=== PATIENT | female | born 1995 | race Caucasian/White ===

== ENCOUNTER 2016-09-13 23:32 | Emergency (ER) | payer MEDICARE, OTHER ==
[2016-09-14] MEDS ORDERED: ACETAMINOPHEN 325 MG TABLET PO ONE (01:03)
[2016-09-14] MEDS ORDERED: LORazepam 2 MG/ML DISP.SYRIN IM ONE (01:03)
[2016-09-14] MEDS ORDERED: LORazepam 2 MG/ML DISP.SYRIN ONE (01:19)
[2016-09-14] MEDS ORDERED: ACETAMINOPHEN 160 MG/5 ML BTL PO ONE (01:21)
--- OUTSIDE RECORDS SUMMARY | 2016-09-14 01:40 | XMS REPORT | Continuity of Care Document ---
:1995 Author Organization [facility] ([facility]) Address [address] [place] [address] Phone [phone] Care Team Providers Name Role Phone Pete Sinha Primary Care Provider [phone] Source Comments This disclosure is being made pursuant to the Care Everywhere program, applicable federal and state laws, and may not contain all informaitonavailable regarding this patient.[facility] ([facility]) Active Allergies and Adverse Reactions Allergen Noted Date Severity Reactions Comments Acyclovir 04/26/2013 Nausea & Patient's mother Vomiting,Rash unable to remember to confirm Amoxicillin 01/25/2014 Diarrhea,OTHER Equivocal 0/1 on RAST scoring system from skin testing 11/18/13 Diphenhydramine (Bulk) Agitation Patient becomes mean, irritable and combative Latex 04/26/2013 Rash Peanut Anaphylactic Shock Promethazine Agitation Patient becomes mean, irritable and combative Ragweed 04/26/2013 OTHER Tree Nut - Food Allergy Anaphylactic Shock Only Vancomycin 04/26/2013 OTHER Renal dysfunction after a past course Current Medications Prescription Sig. Disp. Refills Start End Status Date Date mupirocin 2 % apply topically 2 Active ointment times daily. folic acid 1 mg Take 1 mg by mouth Active tablet daily. Takes Friday to Friday LORazepam 2 mg Take 2 mg by mouth Active tablet 2 times daily. lurasidone (LATUDA) Take 20 mg by Active 20 mg tablet mouth every morning with breakfast. Take with food. fluconazole 100 mg Take 200 mg by Active tablet mouth as needed. loperamide 2 mg Take 2 caps (4 mg) 150 capsule 8 Active capsule upon awakening in 6 the AM, then 1 cap (2 mg) with each bowel movement. Maximum=8 caps per day.. dexamethasone 4 mg Take 4 tablets (16 40 tablet 0 Active tablet mg total) by mouth 6 daily. montelukast 10 mg Take 1 tablet (10 30 tablet Active tablet mg total) by mouth 6 017 every evening. EPINEPHrine (EPIPEN Inject 0.3 mL (0.3 2 Syringe Active 2-ROSA MARIA) 0.3 mg/0.3 mg total) 6 mL injection subcutaneously syringe once as needed. albuterol 5 mg/mL Use 0.5 mL (2.5 mg 20 mL Active nebulizer solution total) by 6 inhalation every 4 hours as needed. Call if not helping for 4 hrs or needing 4+ times/day pantoprazole 40 mg Take 1 tablet (40 30 tablet Active EC tablet mg total) by mouth 6 daily. ranitidine 300 mg Take 1 capsule 30 capsule 8 Active capsule (300 mg total) by 7 mouth at bedtime. levothyroxine 150 Take 1 tablet (150 30 tablet Active mcg tablet mcg total) by 7 mouth daily. fluticasone Use 2 Puffs by 12 g Active (FLOVENT HFA 110) inhalation every 7 inhaler 12 hours. nystatin 100,000 Take 5 mL by mouth 600 mL Active unit/mL suspension 4 times daily. 7 cholecalciferol Take 8,000 Units Active (VITAMIN D3) 2,000 by mouth daily. unit capsule CLOTRIMAZOLE EX Apply topically as Active needed. methotrexate 25 Inject 1 mL (25 mg 10 mL Active mg/mL injection total) 7 subcutaneously every week. SUPPLY insulin Inject 100 Syringe Active syringe w/ needle subcutaneously 2 7 U-100 1 mL 30 g x times daily. 09/24" cholecalciferol Take 3,000 Units Discontinued (VITAMIN D3) 1,000 by mouth daily . 017 unit chewable tablet SUPPLY insulin inject 100 Syringe Discontinued syringe w/ needle subcutaneously 2 4 017 U-100 1 mL 30 g x times daily. 09/24" Indications: crohn's disease metroNIDAZOLE 500 Take 1 tablet (500 60 tablet 2 Discontinued mg tablet mg total) by mouth 5 017 2 times daily nystatin 100,000 Take 5 mL by mouth 600 mL 11 Discontinued unit/mL suspension 4 times daily. 6 017 loratadine 10 mg Take 1 tablet (10 30 tablet Discontinued tablet mg total) by mouth 6 017 daily. methotrexate 25 Inject 1 mL (25 mg 10 mL Discontinued mg/mL injection total) 6 017 subcutaneously every week. Active Problems Problem Noted Date Allergic rhinitis due to pollen 11/14/2015 Ongoing use of possibly toxic medication 04/13/2014 High body mass index 04/11/2014 Forunculosis 01/25/2014 Overview: Treated for presumed MRSA with clindamycin 300 mg PO TID planned for total of 7 days. Asthma, intermittent 01/24/2014 Overview: Currently on PRN albuterol nebulized and inhaled treatments in addition to dexamethasone therapy. 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) 01/24/2014 Vitamin D deficiency 05/06/2013 Obstructive sleep apnea, on CPAP at night 08/16/2010 Hypothyroidism 07/06/2010 Crohn's disease of esophagus 07/06/2010 Pervasv Dev Disorder 02/20/2004 Moderate intellectual disabilities 12/31/2002 Hearing Loss 12/31/2002 Hypersomnia with Sleep Apnea 12/29/2002 Down's syndrome 01/08/2001 Resolved Problems Problem Noted Date Resolved Date Pustular rash 04/13/2014 11/14/2015 Hypoxia 01/27/2014 11/14/2015 Respiratory distress 01/24/2014 11/14/2015 Viral respiratory illness 01/24/2014 11/14/2015 Bronchitis 01/23/2014 11/14/2015 Overview: Currently on levofloxacin, empiric coverage for atypical microorganisms Allergic to beta-lactams Chronic otitis media 01/05/2014 11/14/2015 Fever 08/27/2013 08/28/2013 Thrombosis of arm 09/14/2010 01/24/2014 Anticoagulated 09/14/2010 01/24/2014 Difficulty walking 08/15/2010 01/24/2014 Bacterial pneumonia, recurrent 08/04/2010 01/24/2014 Acute respiratory distress syndrome (ARDS), resolved 08/04/2010 01/24/2014 Empyema treeated with VATS, resolved 08/04/2010 01/24/2014 Prolonged fever 07/24/2010 08/04/2010 Fluid overload 07/14/2010 08/04/2010 Pyoderma gangrenosum 07/12/2010 01/24/2014 Thrombopenia 07/11/2010 07/14/2010 Acute renal failure 07/09/2010 01/24/2014 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 01/24/2014 Overview: Likely B12 deficiency given Crohn's or folate deficiency Lymphopenia 07/06/2010 07/17/2010 Vitamin D deficiency 02/15/2010 08/04/2010 Overview: 02/15/10 was13, 07/09/10 was 20--> 8,000IU since 07/10/10 Weight gain 09/21/2009 01/24/2014 Dysphagia 04/10/2005 01/24/2014 Overview: problem hide stretcher hand replacement for go-live --MAL Lack of coordination 02/15/2005 09/21/2009 Educational circumstance 02/20/2004 09/21/2009 Other specified family circumstances 04/11/2003 09/21/2009 Problems with communication (including speech) 12/31/2002 09/16/2010 Unspecified intellectual disabilities 01/08/2001 09/21/2009 Esophageal reflux 01/08/2001 01/24/2014 Most Recent Encounters Date Type Specialty Providers Description 09/13/2016 Nurse Triage Patient Services Nikki Granda, Chief Comp: RN Immunizations/Injecti ons 09/13/2016 Orders/Notes Pediatric Allergy Vandana Corona ARNP 09/13/2016 Telephone Pediatrics - Specialty Jamie, Chief Comp: Adelina Hopper Medication Question 09/11/2016 Office Visit Pathology Job Michael, Chief Comp: Patient MD Reported Reason For Lab Services, Psc Visit 09/11/2016 Office Visit Pediatric Isi Vazquez Dx: Crohn's disease Gastroenterology MD Veronica of both small and Job Michael large intestine without complication [K50.80] (Primary Dx) 09/11/2016 Office Visit Pediatric Endocrinology Isi Vazquez Dx: Hypothyroidism MD Veronica (acquired) (Primary Flory Sanchez Dx) MD Carlos Hopper Vanessa A, MD Osterhaus, Julie, PNP 09/02/2016 Refill Pediatric Byron Sullivan RN Dx: Crohn's colitis, Gastroenterology without complications (Primary Dx) 08/06/2016 Telephone Pediatric Allergy Vandana Corona, Chief Comp: Forms and 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 Requests 08/01/2016 Telephone Pediatric Allergy Shagufta Baird Chief Comp: Durable E, RN Medical Equipment 08/01/2016 Telephone Pediatrics - Specialty Karma Contreras Chief Comp: Other 07/29/2016 Telephone Pediatric Allergy Shagufta Baird Chief Comp: E, RN Appointment Info 07/24/2016 Telephone Pediatrics - Specialty Celina Engel Chief Comp: Other 07/15/2016 Refill Pediatrics - Specialty Karma Contreras Dx: Asthma, intermittent, uncomplicated (Primary Dx) 07/05/2016 Telephone Pediatrics - Specialty Karma Contreras Chief Comp: Other 07/03/2016 Office Visit Pediatric Isi Vazquez Chief Comp: Patient Gastroenterology MD Veronica Reported Reason For Job Michael, Drew ROUSE 07/03/2016 Office Visit Pediatric Endocrinology Isi Vazquez Chief Comp : Patient F, MD Reported Reason For Flory Sanchez Visit MD Paul Hopper Julie, PNP 06/28/2016 Telephone Pediatric Allergy Shagufta Baird Chief Comp: Durable E, RN Medical Equipment 06/18/2016 Orders/Notes Pediatric Allergy Mookie Craig Dx: Obstructive sleep DMD apnea, on CPAP at night (Primary Dx) 06/18/2016 Telephone Pediatrics - Specialty Jamie, Chief Comp: Ashwini Hopper Medications/orders Immunizations Name Dates Previously Given Next Due DTP/Hib 1995 Hepatitis B, unspecified 1995 Influenza 02/08/2009,02/17/2008,03/03/2007,12/2001,03/30/2001,03/19/1996,04/02/19 95 Influenza, PF 01/20/2015,02/03/2013,02/13/2012,02/09 Influenza, quadrivalent PF 02/12/2016 Influenza, unspecified 02/24/2006,05/01/1995,04/02/1995 Pneumococcal Conjugate, PCV13 (Prevnar 09/11/2016 13) Pneumococcal Polysaccharide, PPSV23 11/02/2012 (Pneumovax 23) Polio, unspecified 1995 Social History Tobacco Use Types Packs/Day Years Used Date Never Smoker Smokeless Tobacco: Never Used Tobacco Cessation:Counseling Given: Yes Comments: Alcohol Use Drinks/Week oz/Week Comments No Last Filed Vital Signs Vital Sign Reading Time Taken Blood Pressure 128/65 09/11/2016 2:25 PM CDT Pulse 86 09/11/2016 2:25 PM CDT Temperature 37.2 C (99 F) 09/11/2016 2:25 PM CDT Respiratory Rate 18 11/14/2015 11:12 AM CDT Height 1.407 m (4' 7.39") 09/11/2016 2:25 PM CDT Weight 75.7 kg (166 lb 14.2 oz) 09/11/2016 2:25 PM CDT Body Mass Index 38.24 09/11/2016 2:25 PM CDT Oxygen Saturation 99% 11/14/2015 11:12 AM CDT Plan of Care Date Type Specialty Providers Description 09/17/2016 Appointment Pediatric Allergy Mookie Craig Dx: Encounter for MD Bhumi pulmonary function [address] [facility] testing (Primary [place], [place] Dx) [address] [phone] (Fax) 01/07/2017 Appointment Med GI/Hepatology Patrice Reid MD Subj: Appointment [address] [facility] [place] [address] [phone] (Fax) 03/19/2017 Appointment Pediatric Endocrinology Robert Taylor MD [address] [place] [address] [phone] (Fax) Subj: Appointment Jonelle Miller PNP [address] [place] [address] [phone] (Fax) Scheduled 03/19/2017 Appointment Pediatric Robert Taylor MD [address] [place] [address] [phone] (Fax) Subj: Appointment Gastroenterology Job Michael MD [address] [place] [address] [phone] (Fax) Scheduled 03/19/2017 Appointment Pediatric Allergy Robert Taylor MD [address] [place] [address] [phone] (Fax) Subj: Appointment Mookie Craig MD [address] [place] [address] [phone] (Fax) Scheduled Health Maintenance Due Date Last Done Comments Hepatitis B Vaccine (2 of 3 1994 1994 - Primary Series) HPV Vaccine (1 of 3 - Female 2005 3 Dose Series) Tdap Vaccine 2005 Cervical Cancer Screening 2012 Lipid Disorder Screening 2012 MMR Vaccine 2012 Td Vaccine 2012 1994 Influenza Vaccine: Seasonal Addressed 02/12/2016, Overridden with the 06/28/2015 intention of not (Previously completing the topic, completed), Additional history exists 01/20/2015 Pneumococcal Vaccine Completed 09/11/2016, 11/02/2012 Results from Last 3 Months DIFFERENTIAL (09/11/2016 2:56 PM) Component Value Range % Neutrophils-Auto Diff 77.1 % Neutrophils-Auto Diff 8740(H) 8077-7367 /MM3 % Lymphocytes-Auto Diff 16.1 % Lymphocytes-Auto Diff 3740 910-6424 /MM3 % Monocytes-Auto Diff 4.5 % Monocytes-Auto Diff 510 130-860 /MM3 % Eosinophils-Auto Diff 1.3 % Eosinophils-Auto Diff 150 40-390 /MM3 % Basophils 0.5 % Basophils-Auto Diff 60 10-136 /MM3 % Immature Granulocytes-Auto Diff 0.5 % Immature Granulocytes-Auto Diff 60 /MM3 Specimen Whole Blood CBC (COMPLETE BLOOD COUNT) (09/11/2016 2:56 PM) Component Value Range WBC Count 11.4(H) 3.7-10.5 K/MM3 RBC Count 4.20 4.00-5.20 M/MM3 Hemoglobin 14.1 11.9-15.5 g/dL Hematocrit 40 35-47 % MCV (Mean Corpuscular Volume) 96 82-99 FL MCH (Mean Corpuscular Hemoglobin) 34 25-35 PG MCHC (Mean Corpuscular Hemoglobin Concentration) 35 32-36 % Platelet Count 240 150-400 K/MM3 MPV (Mean Platelet Volume) 9.8 9.4-12.3 FL RBC Dist Width-STD 51.0(H) 36.4-46.3 FL RBC Distrib Width 14.6(H) 9.0-14.5 % Nucleated RBC 0 /100 WBC Specimen Whole Blood IRON PANEL (IRON, TRANSFERRIN, TIBC AND % SATURATION) (09/11/2016 2:56 PM) Component Value Range Iron, Blood 36(L) 37-145 g/dL Transferrin 167(L) 200-360 mg/dL Iron % Saturation 15Comment: 15-50 % Iron % saturation is a calculated parameter derived from the iron and transferrin plasma concentrations. Iron % saturation is not reliable when there are high ferritin concentrations greater than 1,200 ng/mL. TIBC (Total Iron Binding Capacity) 239(L)Comment: 250-425 g/dL TIBC is a calculated parameter derived from the transferrin plasma concentration. Specimen Blood FERRITIN (09/11/2016 2:56 PM) Component Value Range Ferritin 262.4(H) 13.0-150.0 ng/mL Specimen Blood BILIRUBIN, DIRECT (09/11/2016 2:56 PM) Component Value Range Bilirubin, Direct <0.2 0.0-0.2 mg/dL Specimen Blood LIVER PANEL (09/11/2016 2:56 PM) Component Value Range Bilirubin Total 0.2 <=1.2 mg/dL AST 18Comment: 0-32 U/L Adult reference ranges updated on 04/06/13 at 830am ALT 36(H)Comment: 0-33 U/L The upper limit of normal for alanine aminotransferase (ALT) reference ranges for adults is controversial with some authorities recommending limit as low as 30 U/L for males and 19 U/L for females. Th ere is increased incidence of subclinical liver disease (e.g., early steatohepatitis) in patients with ALT values in the range of 31-41 U/L for males and 20-33 U/L for females. ALT values should alway s be interpreted in conjunction with clinical history, physical examination findings, and, if applicable, data from other diagnostic tests. ALP 87 35-104 U/L GGT 35 5-36 U/L Albumin 3.7 3.4-4.8 g/dL Total Protein 6.3 6.0-8.0 g/dL Specimen Blood ERYTHROCYTE SEDIMENTATION RATE (09/11/2016 2:56 PM) Component Value Range ESR (Erythrocyte Sedimentation Rate) 10 0-20 mm/Hr Specimen Whole Blood C-REACTIVE PROTEIN (09/11/2016 2:56 PM) Component Value Range CRP (C-Reactive Protein) 1.4(H) <=0.5 mg/dL Specimen Blood CBC WITH DIFFERENTIAL (09/11/2016 2:56 PM) Specimen Whole Blood Narrative The following orders were created for panel order CBC WITH DIFFERENTIAL. Procedure Abnormality Status --------- ------ CBC (COMPLETE BLOOD COUNT)[[id number]] AbnormalFinal result DIFFERENTIAL[[id number]] AbnormalFinal result Please view results for these tests on the individual orders. TESTOSTERONE-TOTAL (09/11/2016 2:56 PM) Component Value Range Total Testosterone 32 8-48 ng/dL Specimen Blood Narrative New reference range instituted 07/12/2010. Assay is not recommended for girls less than 8 years old due to the low concentrations of testosterone in this population. Adult Males: 19-49 years old -- 249-836 ng/dL 50 years and older -- 193-740 ng/dL Adult females: 19-49 years old -- 8-48 ng/dL 50 years and older -- 2-41 ng/dL Boys <1 month -- 75-400 ng/dL 1-5 months -- 14-363 ng/dL 6-24 months -- Less than 37 ng/dL 2-5 years -- Less than 19 ng/dL 6-9 years -- Less than 13 ng/dL 10-11 years -- 3-237 ng/dL 12-13 years -- 29-432 ng/dL 14-15 years -- 40-778 ng/dL 16-18 years -- 238-1048 ng/dL Ricardo stage 1 -- Less than 15 ng/dL Ricardo stage 2 -- 3-432 ng/dL Ricardo stage 3 -- 65-778 ng/dL Ricardo stage 4 -- 180-763 ng/dL Ricardo stage 5 -- 188-882 ng/dL Girls Up to 30 days -- 20-64 ng/dL 1-5 months -- Less than 20 ng/dL 6-24 months -- Less than 9 ng/dL 2-3 years -- Less than 20 ng/dL 4-5 years -- Less than 30 ng/dL 6-7 years -- Less than 13 ng/dL 8-9 years -- 1-8 ng/dL 10-11 years -- 3-32 ng/dL 12-13 years -- 3-50 ng/dL 14-15 years -- 6-52 ng/dL 16-18 years -- 9-58 ng/dL Ricardo stage I -- Less than 17 ng/dL Ricardo stage II -- Less than 40 ng/dL Ricardo stage III -- 5-63 ng/dL Ricardo stage IV-V -- 6-58 ng/dL ESTRADIOL (09/11/2016 2:56 PM) Component Value Range Estradiol 24Comment: pg/mL Reference Ranges: Males: 11-43 pg/mL Females: Follicular Phase 12 - 233 pg/mL Ovulation Phase 41 - 398 pg/mL Luteal Phase 22 - 341 pg/mL Postmenopausal <5 - 138 pg/mL : 1st Trimester 154 3,243 pg/mL 2nd Trimester 1,561 21,280 pg/mL 3rd Trimester 8,525 > 30,000 pg/mL Boys (1-10 yrs) <5 - 20 pg/mL Girls (1-10 yrs) 6 - 27 pg/mL Assay methodology changed to [employer] Estradiol III assay on August 29, 2014. Adult reference ranges updated as part of change in methodology. Adult male reference range further updated on 07/23/2016. Specimen Blood VITAMIN D, 25-HYDROXY (09/11/2016 2:56 PM) Component Value Range Vitamin D, 25-OH 36Comment: 20-80 ng/mL This assay accurately quantifies the sum of 25-hydroxyvitamin D3 and 25- hydroxyvitamin D2. Endocrine Society, [place] of Medicine (IOM), and World Health Organization (WHO) guidelines designate 25-h ydroxyvitamin D plasma concentrations below 20 ng/mL as deficient, based on increased frequency of adverse outcomes (e.g., osteoporotic fractures). 25-Hydroxyvitamin D reference ranges are a controversial topic, with some authorities suggesting optimal concentrations should be 30 ng/mL or higher based on correlations of 25-hydroxyvitamin D plasma concentrations with physiological parameters such as parathyroid hormone or calcium concentrations. However, optimal 25-hydroxyvitamin D concentrations greater than 20 ng/mL may be considered for specific disease conditions. Vitamin D toxicity is uncommon but may be seen at 25-hydroxyvitamin D concentrations greater than 150 ng/mL. Specimen Blood THYROXINE - FREE (09/11/2016 2:56 PM) Component Value Range Free T4 (Thyroxine) 1.62 0.80-1.80 ng/dL Specimen Blood THYROID STIMULATING HORMONE (09/11/2016 2:56 PM) Component Value Range TSH 1.57 0.27-4.20 IU/mL Specimen Blood LH,LUTEINIZING HORMONE (09/11/2016 2:56 PM) Component Value Range LH (Luteinizing Hormone) 10.4Comment: mIU/mL Reference ranges: FEMALES: Prepubertal:<0.5 mIU/mL Ricardo II: 0.1 - 4.1 mIU/mL Ricardo III:0.2 - 9.2 mIU/mL Ricardo IV: 0.7 - 8.6 mIU/mL Ricardo V:0.5 - 7.3 mIU/mL Normally Menstruating Follicular phase 2.4 - 12.6 mIU/mL Ovulation phase 14.0 - 95.6 mIU/mL Luteal phase 1.0 - 11.4 mIU/mL Postmenopausal 7.7 - 58.5 mIU/mL MALES: Prepubertal:<0.5 mIU/mL Ricardo II: 0.2 - 2.8 mIU/mL Ricardo III:1.2 - 3.9 mIU/mL Ricardo IV: 0.9 - 4.4 mIU/mL Adults:1.7 - 8.6 mIU/mL Heterophile antibodies present in the serum of some patients may cause a false positive result in this assay.Before making the diagnosis of malignancy based on an elevated serum HCG, confirm witha urine HCG. Specimen Blood FSH,FOLLICLE STIMULATING HORMONE (09/11/2016 2:56 PM) Component Value Range FSH (Follicle Stimulating Hormone) 10.0 mIU/mL Specimen Blood Narrative Reference ranges: FEMALES: 1-3 Yrs: 1.2 - 5.7 mIU/mL 4-8 Yrs: 0.8 - 3.0 Ricardo I:0.5 - 5.1 Ricardo II: 2.4 - 8.7 Ricardo III:3.8 - 8.1 Ricardo IV: 1.1 - 9.6 Ricardo V:2.0 - 7.6 Follicular phase: 3.5 -12.5 mIU/mL Ovulation phase:4.7 -21.5 Luteal phase: 1.7 - 7.7 Postmenopausal:25.8 - 134.8 MALES: 1-3 Yrs: 0.2-1.5 mIU/mL 4-8 Yrs: 0.5-1.6 Ricardo I:0.7-3.1 Ricardo II: 1.1-6.9 Ricardo III:1.8-6.2 Ricardo IV: 1.8-4.8 Ricardo V:1.4-6.8 Adult: 1.5- 12.4 GLUCOSE (09/11/2016 2:56 PM) Component Value Range Glucose 109(H)Comment: 65-99 mg/dL The Expert Committee on the Diagnosis and Classification of Diabetes has defined impaired fasting glucose as greater than or equal to 100 mg/dL but less than 126 mg/dL.(Diabetes Care 28 (Suppl 1)S41,2005) Specimen Blood
--- NOTE | 2016-09-14 01:49 | ERNOTE ---
Upper Extremity HPI - Narrative Date of Service: 09/14/16 - General Source: patient, family Exam Limitations: no limitations - Immun/Allergies/Home Medications Allergies/Adverse Reactions: Allergies Allergy/AdvReac Type Severity Reaction Status Date / Time acyclovir Allergy Intermediate RASH, N/V Verified 01/20/14 13:47 amoxicillin [Amoxicillin] Allergy Unknown Verified 01/20/14 13:47 diphenoxylate [Diphenoxylate] Allergy Unknown Verified 01/20/14 13:47 adhesive Allergy Verified 01/20/14 13:47 cephalexin monohydrate Allergy Verified 01/20/14 13:47 [From Keflex] amoxicillin trihydrate AdvReac Mild Diarrhea Verified 01/20/14 13:47 [From Augmentin] diphenhydramine HCl AdvReac Mild MAKES HERE Verified 01/20/14 13:47 [From Benadryl] MEAN doxycycline AdvReac Mild SEVERE Verified 01/20/14 13:47 HEADACHE latex AdvReac Mild RASH Verified 01/20/14 13:47 levofloxacin [From Levaquin] AdvReac Mild UNABLE TO Verified 01/21/14 14:39 WALK potassium clavulanate AdvReac Mild Diarrhea Verified 01/20/14 13:47 [From Augmentin] promethazine AdvReac Mild MAKES HER Verified 01/20/14 13:47 VERY MEAN vancomycin AdvReac Mild BAD FOR Verified 01/20/14 13:47 KIDNEYS cefepime HCl [From Maxipime] AdvReac Verified 01/23/14 14:37 Home Medications: HOME MEDICATIONS Beclomethasone Dipropionate [Qvar] 2 inh IH BID 05/25/13 [Last Taken 01/20/14] EPINEPHrine [Epipen] 0.3 mg IM PRN PRN 05/25/13 [Last Taken 08/26/13] LORazepam [Ativan] 2 mg PO DAILY 05/25/13 [Last Taken 01/20/14] Loratadine [Claritin] 10 mg PO DAILY 05/25/13 [Last Taken 01/20/14] Methotrexate Sodium [Methotrexate] 0.6 ml SC SA 05/25/13 [Last Taken 01/08/14] Montelukast Sodium [Singulair] 10 mg PO DAILY 05/25/13 [Last Taken 01/20/14] Pantoprazole Sodium [Protonix] 40 mg PO DAILY 05/25/13 [Last Taken 01/20/14] Ranitidine HCl [Zantac] 300 mg PO HS 05/25/13 [Last Taken 01/19/14] Folic Acid 1 mg PO DAILY 08/26/13 [Last Taken 01/20/14] Nystatin 100,000 unit PO QID 08/26/13 [Last Taken 08/26/13] Levothyroxine Sodium [Tirosint] 137 mcg PO DAILY #0 01/20/14 [Last Taken ] Lurasidone HCl [Latuda] 20 mg PO DAILY 01/20/14 [Last Taken Unknown] Cholecalciferol [Vitamin D] 2,000 unit PO BID 01/21/14 [Last Taken Unknown] - History of Present Illness Narrative: redness of left upper arm where pt recently received a pneumovax shot. This happened today. some Motrin was given however mother brings special needs daughter in for evaluation. no respiratory complaints or symptoms Review of Systems - Review of Systems Constitutional: Present: no symptoms reported EYE: Present: no symptoms reported ENT: Present: no symptoms reported Respiratory: Present: no symptoms reported Cardiology: Present: no symptoms reported Skin: Present: See HPI - Patient's Past Medical History Patient History - Medical: Anemia, Anxiety, GERD, Hypothyroidism, Obesity, Other Patient History - Cardiac/Respiratory: Asthma, Pneumonia, CPAP/BiPAP Home Use, Sleep Apnea Patient History - Surgical Procedures: Colonoscopy, EGD, Ear Tubes, Hysterectomy , T & A - Family History Mother Family History - Medical: Anxiety, Depression, Hypothyroidism, Osteoarthritis Family History - Cardiac/Respiratory: Atrial Fibrillation - Social History Living Situations: parents Psych History: Psychiatric Hx, Hx of Anxiety Have you smoked in the past 12 months: No Alcohol Use: none Drug Use: none Physical Exam - Physical Exam General Appearance: Present: wd/wn, alert, no apparent distress Ears, Nose, Throat: Present: normal ENT inspection Neck: Present: normal inspection, nontender Respiratory: Present: no respiratory distress, normal breath sounds, no accessory muscle use, chest nontender, lungs clear Cardiovascular/Chest: Present: regular rate, rhythm, no murmur, normal peripheral pulses Gastrointestinal/Abdominal: Present: normal bowel sounds, nontender, nondistended Extremity Exam: Present: normal except - - redness of left deltoid area, other - There is redness of the deltoid region on the left side. no open lesions noted. The are is approximatley 10cm in diameter. area feels slightly warm to touch and slightly swollen Neurological Exam: Present: alert - at baseline for patient ED Progress - Vital Signs Patient's Vital Signs:: I have reviewed the patient's vital signs. Vital Signs: Vital Signs 09/14/16 00:46 Temperature 37.4 C Pulse Rate 120 H Respiratory 22 H Rate Blood Pressure 135/90 O2 Sat by Pulse 96 Oximetry - Progress/Reassessment Chief Complaint: Upper Extremity Injury/Problem Plan - Plan Plan: This appears to be a local reaction to the Pneumovax vaccine. Patient and her mother were reassured repeatedly. Patient was given Ativan 1 mg for agitation. She will be treated with cold compresses and Tylenol 650 mg by mouth. They are to follow with her primary care physician as indicated. Departure Clinical Impression: Medication reaction - Departure Disposition: Home self-care Condition: Good Instructions: Drug Rash Additional Instructions: Continue cooling measures on area of redness Referrals: Pete Sinha MD [Primary Care Provider] -
[2016-09-14 02:42] VITALS: BP 114/56
== END 2016-09-14 01:45 | disposition home or self-care (01) ==
LOC: ER 23:32
DX: T88.1XXA Other complications following immunization, not elsewhere classified, initial encounter (principal); L27.1 Localized skin eruption due to drugs and medicaments taken internally; K21.9 Gastro-esophageal reflux disease without esophagitis; J45.909 Unspecified asthma, uncomplicated; F41.9 Anxiety disorder, unspecified; E03.9 Hypothyroidism, unspecified